=== PATIENT | male | born 1965 | race Caucasian/White ===

== ENCOUNTER 2023-07-10 12:30 | Emergency (ER) | payer BC ==
[2023-07-10] MEDS ORDERED: methylPREDNISolone Sod Succ/PF 125 MG/2 ML VIAL ONE (12:36)
[2023-07-10] MEDS ORDERED: EPINEPHrine 1 MG/ML AMP ONE (13:27)
== END 2023-07-10 14:37 | disposition home or self-care (01) ==
LOC: NAV ERS 12:30
DX: T63.441A Toxic effect of venom of bees, accidental (unintentional), initial encounter (principal); E78.00 Pure hypercholesterolemia, unspecified; I10 Essential (primary) hypertension; Z79.899 Other long term (current) drug therapy
CPT/HCPCS: 94760; 96372; 96374; J0171; J2930

== ENCOUNTER 2024-02-11 14:56 | Emergency (ER) | payer BC ==
[~2024-02-11 14:56] MED LIST: Iopamidol 370 76% 100 ML VIAL ONE
[2024-02-11] MEDS ORDERED: Sodium Chloride 0.9% 1,000 ML ONE (15:23)
[2024-02-11 16:07] LABS: #Basophils 0.1 thou/uL (0.0-0.2); #Eosinophils 0.1 thou/uL (0.0-0.7); #Lymphocytes 1.9 thou/uL (1.20-3.40); #Monocytes 0.5 thou/uL (0.11-0.59); #Neutrophils 5.5 thou/uL (1.40-6.50); %Basophils 1.2 % (0.0-1.0); %Eosinophils 1.7 % (0.0-10.0); %Lymphocytes 23.2 % (21.0-51.0); %Monocytes 6.1 % (0.0-10.0); %Neutrophils 67.8 % (42.0-75.0); Hematocrit 46.4 % (42.0-52.0); Hemoglobin 16.6 g/dL (14.0-18.0); Mean Corpuscular HGB CONC 35.7 g/dL (32.0-36.0); Mean Corpuscular Hemoglobin 31.6 pg (27.0-31.0); Mean Corpuscular Volume 88.4 fl (78.0-98.0); Mean Platelet Volume 8.5 fL (7.4-10.4); Platelet Count 131 10x3/uL (130-400); RBC Distribution Width 11.5 % (11.5-14.5); Red Blood Cell (RBC) Count 5.25 mill/uL (4.70-6.10); White Blood Cell (WBC) Count 8.1 10x3/uL (4.8-10.8)
[2024-02-11 16:26] LABS: ALT (SGPT) 39 U/L (8-55); AST (SGOT) 30 U/L (5-34); Albumin 3.8 g/dL (3.5-5.0); Alkaline Phosphatase 102 U/L (40-110); Anion Gap 14 mmol/L (10-20); BUN (Urea Nitrogen) 13 mg/dL (8.4-25.7); Bilirubin, Total 1.1 mg/dL (0.2-1.2); Calc. Creatinine Clearance 0 mL/min (70-130); Carbon Dioxide 23 mmol/L (22-29); Chloride 103 mmol/L (98-107); Estimated GFR 87; Globulin 2.7 g/dL (2.4-3.5); Glucose 193 mg/dL (70-105); Lipase 29 U/L (8-78); Potassium 4.1 mmol/L (3.5-5.1); Protein, Total 6.5 g/dL (6.0-8.3); Sodium 136 mmol/L (136-145)
[2024-02-11 16:32] LABS: Troponin I 0.044 ng/mL (< 0.028)
[2024-02-11] MEDS ORDERED: Aspirin Chewable 81 MG TAB ONE (16:51)
[2024-02-11] MEDS ORDERED: Nitroglycerin 2% Ointment 1 INCH/1 GM Packet ONE (16:52)
[2024-02-11] MEDS ORDERED: Furosemide 40 MG (4 mL) VIAL ONE (16:52)
[2024-02-11 17:52] LABS: Bilirubin Negative (Negative); Blood, Urine Negative (Negative); Clarity Clear (Clear); Glucose, Urine (Dipstick) Negative (Negative); Ketone, Urine Negative (Negative); Leukocyte Negative (Negative); Nitrite Negative (Negative); Protein, Urine (Dipstick) Negative (Neg-Trace); Urobilinogen 0.2 mg/dL (Less than 2)
[2024-02-11 18:07] LABS: Bacteria/HPF Rare-Few HPF (None Seen); CAUTI Indications for Culture Alt mental st,lethar; RBC/HPF 0-3 HPF (0-3); Squamous Epithelial None Seen HPF (0-3); WBC/HPF None Seen HPF (0-3)
[2024-02-11 18:08] LABS: Urine Culture Reflex No No
[2024-02-11 19:29] LABS: Influenza A by NAA Not Detected (NotDetected); Influenza B by NAA Not Detected (NotDetected); SARS-CoV-2 NAA Rapid Test Not Detected (NotDetected)
== END 2024-02-11 17:59 | disposition short-term general hospital (02) ==
LOC: NAV ERS 14:56
DX: R04.2 Hemoptysis (principal); I11.0 Hypertensive heart disease with heart failure; I50.9 Heart failure, unspecified; E78.00 Pure hypercholesterolemia, unspecified; Z79.899 Other long term (current) drug therapy
CPT/HCPCS: 36415; 71275; 80053; 81001; 83690; 83880; 84484; 85025; 93005; 96374; J1940; J7030; Q9967

== ENCOUNTER 2024-03-07 11:22 | Outpatient (CLI) | payer BC ==
[2024-03-07 12:03] LABS: INR-International Normal Ratio 3.1
[2024-03-07 13:10] LABS: Follow-up Coag Comp? YES; Follow-up Result - Coag REPORT FAXED
== END 2024-03-07 11:23 | disposition home or self-care (01) ==
LOC: NAV LAB 11:22
DX: I25.118 Atherosclerotic heart disease of native coronary artery with other forms of angina pectoris (principal)
CPT/HCPCS: 36415; 85610

== ENCOUNTER 2024-03-09 05:46 | Emergency (ER) | payer BC ==
[2024-03-09 06:31] LABS: INR-International Normal Ratio 3.1; Prothrombin Time 32.5 sec (12.0-14.7)
[2024-03-09 06:32] LABS: PTT 57.1 sec (22.9-36.1)
[2024-03-09 06:33] LABS: #Basophils 0.2 thou/uL (0.0-0.2); #Eosinophils 0.2 thou/uL (0.0-0.7); #Lymphocytes 2.1 thou/uL (1.20-3.40); #Monocytes 1.3 thou/uL (0.11-0.59); #Neutrophils 16.9 thou/uL (1.40-6.50); %Basophils 1.1 % (0.0-1.0); %Eosinophils 0.9 % (0.0-10.0); %Lymphocytes 10.3 % (21.0-51.0); %Monocytes 6.4 % (0.0-10.0); %Neutrophils 81.3 % (42.0-75.0); Hematocrit 30.2 % (42.0-52.0); Hemoglobin 10.4 g/dL (14.0-18.0); Mean Corpuscular HGB CONC 34.4 g/dL (32.0-36.0); Mean Corpuscular Volume 87.3 fl (78.0-98.0); Mean Platelet Volume 8.3 fL (7.4-10.4); Platelet Count 433 10x3/uL (130-400); RBC Distribution Width 13.7 % (11.5-14.5); Red Blood Cell (RBC) Count 3.46 mill/uL (4.70-6.10); White Blood Cell (WBC) Count 20.8 10x3/uL (4.8-10.8)
[2024-03-09 06:38] LABS: ALT (SGPT) 56 U/L (8-55); AST (SGOT) 36 U/L (5-34); Alkaline Phosphatase 246 U/L (40-110); Anion Gap 16 mmol/L (10-20); BUN (Urea Nitrogen) 19 mg/dL (8.4-25.7); Bilirubin, Total 1.1 mg/dL (0.2-1.2); Calc. Creatinine Clearance 0 mL/min (70-130); Carbon Dioxide 21 mmol/L (22-29); Chloride 103 mmol/L (98-107); Estimated GFR 53; Glucose 130 mg/dL (70-105); Potassium 4.6 mmol/L (3.5-5.1); Sodium 135 mmol/L (136-145)
== END 2024-03-09 07:49 | disposition short-term general hospital (02) ==
LOC: NAV ERS 05:46
DX: K92.2 Gastrointestinal hemorrhage, unspecified (principal); D64.9 Anemia, unspecified; D68.32 Hemorrhagic disorder due to extrinsic circulating anticoagulants; E78.00 Pure hypercholesterolemia, unspecified; I10 Essential (primary) hypertension; Z71.3 Dietary counseling and surveillance; Z95.2 Presence of prosthetic heart valve; Z95.1 Presence of aortocoronary bypass graft; Z79.899 Other long term (current) drug therapy
CPT/HCPCS: 80053; 82274; 85025; 85610; 85730; 86850; 86900; 86901; 93005

== ENCOUNTER 2024-06-10 15:11 | Emergency (ER) | payer BC, OTHER ==
[2024-06-10] MEDS ORDERED: Lidocaine 1% (PF) 30 ML VIAL ONE (15:32)
[2024-06-10] MEDS ORDERED: Boostrix 0.5 ML (Tdap) VIAL (>/=7 yrs of age) ONE (16:12)
== END 2024-06-10 16:24 | disposition home or self-care (01) ==
LOC: NAV ERS 15:11
DX: S01.01XA Laceration without foreign body of scalp, initial encounter (principal); I10 Essential (primary) hypertension; E03.9 Hypothyroidism, unspecified; E78.00 Pure hypercholesterolemia, unspecified; W20.8XXA Other cause of strike by thrown, projected or falling object, initial encounter; Y93.89 Activity, other specified; Z23 Encounter for immunization; Z79.01 Long term (current) use of anticoagulants; Z79.899 Other long term (current) drug therapy
CPT/HCPCS: 12002; 90471; 90715